=== PATIENT | male | born 1955 | race Caucasian/White ===

== ENCOUNTER → 2016-11-21 | Outpatient (CLI) | payer BC ==
[~2016-11-21] MED LIST: GENTAMICIN O5 ML/BOT OP
[2016-11-21 09:56] LABS: BUN 9 mg/dL (7-18)
[2016-11-21 09:58] LABS: GFR (ESTIMATED) 76 ML/MIN (>60)
== END ==
LOC: RT 09:38 → LAB 09:38
PROVIDERS: Orthopaedic Surgery
DX: S83.242A Other tear of medial meniscus, current injury, left knee, initial encounter (principal); Z01.810 Encounter for preprocedural cardiovascular examination; Z01.811 Encounter for preprocedural respiratory examination; Z01.812 Encounter for preprocedural laboratory examination

== ENCOUNTER 2016-11-26 08:00 | Day surgery (SDC) | payer BC ==
[~2016-11-26] VITALS: Ht 175.3 cm; Wt 77.1 kg
--- NOTE | 2016-11-26 12:02 | Anesthesia Record ---
Anesthesia Record Part I Total IV fluids: 740 EBL (ml): 10 Urine Output: 0 Units of blood given: 0 B/P: 137/69 % SaO2: 96 Pulse: 111 Resps: 10 Temp: 98.0 Patient is: Awake, Stable Stable to PACU at: 1155 at 1202
--- NOTE | 2016-11-26 12:03 | Anesthesia Record ---
Anesthesia Record Part II Discharge time: 1225 Destination: Same day surgery PACU nurse assessment review? Yes Patient is: Awake, Stable Anesthesia complications? No at 1202
--- NOTE | 2016-11-26 12:20 | Operative Note ---
Procedure/Operative Record Date of Procedure: 11/26/16 Pre-op diagnosis: LEFT knee medial meniscal Post-op diagnosis: 1) LEFT knee medial meniscal tear 2) medial plica syndrome patella, LEFT knee 3) chondromalacia medial femoral condyle and patella, LEFT knee Procedure performed: 1) arthroscopic debridement medial meniscal tear, LEFT knee 2 arthroscopic debridement of medial plica LEFT knee 0 Surgeon: Zoran Berman Anesthesia: General anesthetic Indications: 61-year-old male with a symptomatic LEFT knee believe secondary to a medial meniscal tear of the posterior third of the meniscus. This is documented on MRI. As the patient failed to improve the conservative therapy, arthroscopic debridement of the meniscal tear is indicated intraoperative findings revealed the presence off a medial plical which was abrading the medial femoral condyle cartilage and creating changes of neovascularization. Debridement of the medial plica is indicated as well. Findings: An unstable medial meniscal tear of the posterior one third was noted. This involved largely in undersurface tear with horizontal cleavage tear planes. There was grade 2 and three chondromalacial changes of the central ridge of the patella and of the medial femoral condyle as well. Femoral trochlea was relatively uninvolved with degenerative changes. A symptomatic medial plica grating neovascularization changes in abrasion of the medial femoral condyle cartilage was present. The plica was quite hyperemic. No loose bodies in the gutters or the suprapatellar pouch was noted. The anterior cruciate ligament and posterior cruciate ligament were intact. The lateral compartment was essentially unremarkable inferior minor fraying changes of the lateral meniscus which did not require surgical intervention Description of procedure: The patient operating room and given a general anesthetic. He was prepped and draped in the usual sterile fashion. A tourniquet was not utilized we examined the knee under anesthesia and found no findings of note. An anterolateral portal was created the 4 mm arthroscope inserted. This was followed by a cursory examination of the knee and placement of the scope in the medial compartment where a spinal needle was used to optimize position of the medial portal. The operation was conducted through these two portals. Medial plica was noted and the arthroscope brought down to the notch with the anterior cruciate ligament and posterior cruciate ligament were visualized. The lateral compartment was entered and immediately the chondromalacia of the mediofemoral condyle as well as the tear of the meniscus visualized. We used combination of a 4 mm shaver and basket instruments to remove the torn portion of the meniscus back to stable tissue. The shaver was used to remove bits and pieces of loose debris created by the process. We then probed the meniscus to ensure a stable meniscus debridement had been obtained. We then turned attention to the medial plica. As this was clearly abrading the medial femoral condyle cartilage, we used the shaver to debride the plica as well. Again we used the shaver as a suction and vacuuming device, cycling the knee through several flexion-extension cycles and palpating the popliteal fossa to bring any bits and pieces of loose tissue forward to be removed. Once this was completed, we then brought the knee into a figure 4 position and checked the lateral compartment with the above findings. We suctioned excess fluid from the knee, closed the portals, dressed the knee, and transported the patient to the recovery room in satisfactory condition. EBL (ml): 1 Complications: None Specimens: None at 1211
[2016-11-26 14:31] VITALS: BP 103/73
== END 2016-11-26 12:56 | disposition home or self-care (01) ==
LOC: SDC 08:00
PROC: 0SQD4ZZ Repair Left Knee Joint, Percutaneous Endoscopic Approach (ICD-10-PCS; principal; 2016-11-26)
DX: M23.204 Derangement of unspecified medial meniscus due to old tear or injury, left knee (principal); M67.52 Plica syndrome, left knee; M22.42 Chondromalacia patellae, left knee

== ENCOUNTER → 2016-12-11 | Outpatient (CLI) | payer BC | LOC: RAD 13:36 | DX: Z48.89 Encounter for other specified surgical aftercare (principal) ==